=== PATIENT | male | born 1930 | race Caucasian/White ===

== ENCOUNTER 2018-03-26 21:09 | Inpatient (IN) | payer OTHER, BC ==
[~2018-03-26] VITALS: Ht 175.3 cm; Wt 81.6 kg
[2018-03-26 22:00] LABS: HEMATOCRIT 38.3 % (38.0-50.0); HEMOGLOBIN 12.8 G/DL (12.5-16.6); MCH 32.8 PG (29.0-34.0); MCHC 33.4 G/DL (30.0-36.0); MCV 98.2 FL (86-99); PLATELET COUNT 170 K/uL (156-360); RBC DIS.WIDTH-CV 13.3 % (11.8-14.6); RBC DIS.WIDTH-SD 47.8 % (39-53); WHITE BLOOD COUNT 10.6 K/uL (4.1-10.2)
[2018-03-26 22:09] LABS: ALBUMIN 3.1 g/dL (3.2-4.8)
[2018-03-26 22:10] LABS: CHLORIDE 103 mEq/L (99-109); SODIUM 137 mEq/L (136-147)
[2018-03-26 22:12] LABS: GLUCOSE 142 mg/dL (70-99); TOTAL PROTEIN 5.6 g/dL (6.4-8.3)
[2018-03-26 22:14] LABS: TOTAL BILIRUBIN 0.6 mg/dL (0.0-1.0)
[2018-03-26 22:15] LABS: ALKALINE PHOSPHATASE 66 IU/L (3-129)
[2018-03-26 22:16] LABS: CREATININE 1.6 mg/dL (0.6-1.3); GFR ESTIMATE (CALCULATED) 43 mL/min/ (58.99-99999)
[2018-03-26 22:17] LABS: AST (GOT) 15 IU/L (2-34); UREA NITROGEN (BUN) 51 mg/dL (9-23)
[2018-03-26 22:19] LABS: ALT (GPT) 16 IU/L (3-49)
[2018-03-26 23:31] LABS: PTT 36.2 SEC (25-37)
[2018-03-26 23:38] LABS: LIPASE 56 U/L (1.0-51.0)
[2018-03-26 23:43] LABS: TROP-I INTERPRETATION NEGATIVE; TROPONIN-I 0.02 ng/mL (0.0-0.30)
[2018-03-27] MEDS ORDERED: BENZONATATE200 MG PO (04:04)
[2018-03-27] MEDS ORDERED: COREG12.5 M1 PO (04:05)
[2018-03-27] MEDS ORDERED: FUROSEMIDE20 MG PO (04:06)
[2018-03-27] MEDS ORDERED: LISINOPRIL20 MG PO (04:07)
[2018-03-27] MEDS ORDERED: XALATAN2.5 ML BOTH EYES (04:07)
[2018-03-27] MEDS ORDERED: PRAVACHOL20 MG PO (04:08)
[2018-03-27] MEDS ORDERED: DELTASONE20 M1 PO (04:08)
[2018-03-27] MEDS ORDERED: COUMADIN3 MG PO (04:09)
[2018-03-27] MEDS ORDERED: ZOLOFT50 MG PO (04:09)
[2018-03-27 04:23] LABS: APPEARANCE SL.HAZY ((CLEAR)); BILIRUBIN NEGATIVE; BLOOD NEGATIVE; COLOR YELLOW ((YELLOW)); GLUCOSE (STRIP) NEGATIVE; KETONES NEGATIVE; LEUKOCYTES NEGATIVE; NITRITE NEGATIVE; PROTEIN (STRIP) NEGATIVE; SPECIFIC GRAVITY 1.032 (1.000-1.030); UROBILINOGEN 0.2 MG/DL (0.2-1.0)
[2018-03-27 04:36] LABS: BACTERIA NONE SEEN /HPF; EPITHELIAL CELLS RARE /HPF; HYALINE CASTS 0-5 /LPF; MUCUS TRACE /LPF; RED BLOOD CELLS 0-5 /HPF (0-5); UCUL ADDED? NO; WHITE BLOOD CELLS 0-5 /HPF (0-5)
[2018-03-27 04:58] VITALS: BP 110/56
[2018-03-27 07:15] VITALS: BP 102/65
[2018-03-27 07:22] LABS: INTER. NORMALIZED RATIO 2.5
[2018-03-27 16:48] VITALS: BP 98/56
[2018-03-27 19:05] VITALS: BP 100/52
[2018-03-27 22:18] VITALS: BP 109/56
[2018-03-28] VITALS (7 sets, daily range): BP systolic 99–124; BP diastolic 56–74
[2018-03-28 05:03] LABS: BASOPHIL (%) 0.1 % (0-1); EOSINOPHIL (%) 1.2 % (0-5); EOSINOPHIL COUNT 0.1 K/uL (0-0.3); HEMATOCRIT 29.2 % (38.0-50.0); HEMOGLOBIN 9.5 G/DL (12.5-16.6); IMMATURE GRANULOCYTE (%) 0.9 % (0.0-0.7); LYMPHOCYTE (%) 12.6 % (15-42); LYMPHOCYTE COUNT 1.3 K/uL (1.0-2.8); MCH 32.3 PG (29.0-34.0); MCHC 32.5 G/DL (30.0-36.0); MCV 99.3 FL (86-99); MONOCYTE (%) 9.7 % (3-12); NEUTROPHIL (%) 75.5 % (45-76); NEUTROPHIL COUNT 7.7 K/uL (1.8-6.4); PLATELET COUNT 149 K/uL (156-360); RBC DIS.WIDTH-CV 13.4 % (11.8-14.6); RBC DIS.WIDTH-SD 48.6 % (39-53); RED BLOOD COUNT 2.94 M/uL (4.00-5.50); WHITE BLOOD COUNT 10.2 K/uL (4.1-10.2)
[2018-03-28 05:14] LABS: INTER. NORMALIZED RATIO 2.5
[2018-03-28 05:23] LABS: CHLORIDE 100 MEQ/L (99-109); GFR ESTIMATE (CALCULATED) 32 mL/min/ (58.99-99999); POTASSIUM 4.5 MEQ/L (3.7-5.4); SODIUM 134 MEQ/L (136-147)
[2018-03-28 05:28] LABS: CREATININE 2.1 MG/DL (0.6-1.3); GLUCOSE 86 mg/dL (70-99); UREA NITROGEN (BUN) 85 mg/dL (9-23)
[2018-03-29 04:09] VITALS: BP 92/59
[2018-03-29 06:18] LABS: BASOPHIL (%) 0.1 % (0-1); EOSINOPHIL (%) 1.3 % (0-5); EOSINOPHIL COUNT 0.1 K/uL (0-0.3); HEMATOCRIT 28.5 % (38.0-50.0); HEMOGLOBIN 9.3 G/DL (12.5-16.6); IMMATURE GRANULOCYTE (%) 1.2 % (0.0-0.7); LYMPHOCYTE (%) 10.9 % (15-42); LYMPHOCYTE COUNT 1.1 K/uL (1.0-2.8); MCH 31.8 PG (29.0-34.0); MCHC 32.6 G/DL (30.0-36.0); MCV 97.6 FL (86-99); MONOCYTE COUNT 1.1 K/uL (0-0.8); NEUTROPHIL (%) 75.5 % (45-76); NEUTROPHIL COUNT 7.9 K/uL (1.8-6.4); PLATELET COUNT 160 K/uL (156-360); RBC DIS.WIDTH-CV 13.4 % (11.8-14.6); RBC DIS.WIDTH-SD 47.8 % (39-53); RED BLOOD COUNT 2.92 M/uL (4.00-5.50); WHITE BLOOD COUNT 10.4 K/uL (4.1-10.2)
[2018-03-29 06:42] LABS: ALBUMIN 2.5 G/DL (3.2-4.8); CHLORIDE 106 MEQ/L (99-109); CREATININE 1.9 MG/DL (0.6-1.3); GFR ESTIMATE (CALCULATED) 36 mL/min/ (58.99-99999); GLUCOSE 77 mg/dL (70-99); IRON 65 MCG/DL (35-150); PHOSPHORUS 2.8 mg/dL (2.5-4.9); POTASSIUM 4.4 MEQ/L (3.7-5.4); SODIUM 137 MEQ/L (136-147); TRANSFERRIN (TIBC) 180.4 mg/dL (215-380); TRANSFERRIN SATUR. 36 % (20-55); UREA NITROGEN (BUN) 80 mg/dL (9-23)
[2018-03-29 06:58] LABS: URIC ACID 8.8 mg/dL (3.1-9.2)
[2018-03-29 07:34] VITALS: BP 111/65
[2018-03-29 10:34] VITALS: BP 89/45
[2018-03-29 11:00] LABS: INTER. NORMALIZED RATIO 1.9
[2018-03-29 16:10] VITALS: BP 127/61
[2018-03-29 20:08] VITALS: BP 139/63
[2018-03-30 00:03] VITALS: BP 131/60
[2018-03-30 03:48] VITALS: BP 157/78
[2018-03-30 06:39] LABS: BASOPHIL (%) 0.1 % (0-1); EOSINOPHIL (%) 1.4 % (0-5); EOSINOPHIL COUNT 0.1 K/uL (0-0.3); HEMATOCRIT 28.7 % (38.0-50.0); HEMOGLOBIN 9.4 G/DL (12.5-16.6); IMMATURE GRANULOCYTE (%) 1.5 % (0.0-0.7); LYMPHOCYTE (%) 10.2 % (15-42); MCH 32.2 PG (29.0-34.0); MCHC 32.8 G/DL (30.0-36.0); MCV 98.3 FL (86-99); MONOCYTE (%) 9.9 % (3-12); NEUTROPHIL (%) 76.9 % (45-76); NEUTROPHIL COUNT 7.9 K/uL (1.8-6.4); PLATELET COUNT 167 K/uL (156-360); RBC DIS.WIDTH-CV 13.4 % (11.8-14.6); RBC DIS.WIDTH-SD 47.8 % (39-53); RED BLOOD COUNT 2.92 M/uL (4.00-5.50); WHITE BLOOD COUNT 10.2 K/uL (4.1-10.2)
[2018-03-30 06:47] LABS: INTER. NORMALIZED RATIO 1.6
[2018-03-30 07:01] LABS: ALBUMIN 2.5 G/DL (3.2-4.8); CHLORIDE 108 MEQ/L (99-109); CREATININE 1.7 MG/DL (0.6-1.3); GFR ESTIMATE (CALCULATED) 41 mL/min/ (58.99-99999); GLUCOSE 79 mg/dL (70-99); PHOSPHORUS 2.2 mg/dL (2.5-4.9); POTASSIUM 4.5 MEQ/L (3.7-5.4); SODIUM 140 MEQ/L (136-147); UREA NITROGEN (BUN) 69 mg/dL (9-23)
[2018-03-30 07:26] VITALS: BP 133/66
[2018-03-30 11:52] VITALS: BP 134/71
[2018-03-30] MEDS ORDERED: CARVEDILOL6.25 MG PO (12:00)
[2018-03-30] MEDS ORDERED: PREDNISONE20 MG PO (12:04)
[2018-03-30] MEDS ORDERED: COUMADIN1 MG PO (12:08)
== END 2018-03-30 14:35 | disposition home health service (06) | DRG 556 ==
LOC: EME 21:09 → EDOF 03-27 03:07 → ENRESERV 03-27 03:09 → 3EAST 03-27 04:45
PROVIDERS: Hospitalist; Internal Medicine Nephrology; Student in an Organized Health Care Education/Training Program
DX: M79.81 Nontraumatic hematoma of soft tissue (principal); T45.515A Adverse effect of anticoagulants, initial encounter; N17.9 Acute kidney failure, unspecified; I95.9 Hypotension, unspecified; R79.1 Abnormal coagulation profile; J42 Unspecified chronic bronchitis; I13.0 Hypertensive heart and chronic kidney disease with heart failure and stage 1 through stage 4 chronic kidney disease, or unspecified chronic kidney disease; I50.9 Heart failure, unspecified; N18.3 Chronic kidney disease, stage 3 (moderate); I48.2 Chronic atrial fibrillation; Z79.01 Long term (current) use of anticoagulants; Z86.711 Personal history of pulmonary embolism; Z87.891 Personal history of nicotine dependence
CPT/HCPCS: 71250; 74176; 76770; 80048; 80053; 80069; 81003; 83540; 83605; 83690; 84466; 84484; 84550; 85025; 85027; 85610; 85730; 87040; 93005; 93306; 94799; 99281; 99285; J3010; J7030; J7512